=== PATIENT | female | born 1940 | race Caucasian/White ===

== ENCOUNTER 2023-04-09 16:25 | Inpatient (IN) | payer OTHER ==
[2023-04-09 18:11] LABS: Hematocrit 36.2 % (36.0-45.0); Lymphocytes % 14.8 % (15.3-44.8); MCV 84.8 fL (80-100); MPV 8.2 fL (7.6-11.3); RBC Red Blood Cell Count 4.27 M/uL (3.86-4.86)
[2023-04-09 18:18] LABS: Protime INR 1.12
[2023-04-09 18:29] LABS: Albumin 2.9 g/dL (3.4-5.0); Bilirubin Direct 0.1 mg/dL (0-0.2); Bilirubin Indirect, Calculated 0.2 mg/dL (0.2-0.8); Bilirubin Total 0.3 mg/dL (0.2-1.0); Magnesium 1.3 mg/dL (1.6-2.4); Protein, Total 7.2 g/dL (6.4-8.2); Troponin High Sensitivity 6.9 pg/mL (<58.9)
--- NOTE | 2023-04-09 18:33 | RAD REPORT ---
EXAM DESCRIPTION: [place] Single View04/09/2023 5:56 pm CLINICAL HISTORY: weakness COMPARISON: CHEST PA AND LAT 2 VIEW dated 03/24/2011; CHEST PA AND LAT 2 VIEW dated 03/17/2011; CHEST PA AND LAT 2 VIEW dated 08/19/2010; CHEST PA AND LAT 2 VIEW dated 02/14/2008 TECHNIQUE: Portable AP view of the chest. FINDINGS: Perihilar fluffy opacities with bilateral layering effusions and Lazaro B-lines . No pneum othorax. The cardiomediastinal contours are unremarkable. IMPRESSION: Findings suggestive of pulmonary edema with bilateral pleural effusions. Underlying pneu monia would be difficult to exclude.
--- NOTE | 2023-04-09 18:48 | RAD REPORT ---
EXAM DESCRIPTION: CT - Head Brain Wo Cont - 04/09/2023 6:10 pm CLINICAL HISTORY: DIZZINESS COMPARISON: HEAD BRAIN W O CONTRAST dated 06/05/2009; HEAD BRAIN W O CONTRAST dated 01/29/1987 TECHNIQUE: Noncontrast head CT images were obtained without IV contrast. Multiplanar reformats were generated and reviewed. All CT scans are performed using dose optimization technique as appropriate and may include automated exposure control or mA/KV adjustment according to patient size. FINDINGS: No intracranial hemorrhage, mass, or edema. Midline structures are unremarkable. Stable ventricular caliber, with mild diffuse parenchymal volume loss. Stable left subinsular focus o f near CSF density, may represent a small remote infarct or prominent perivascular space. Davis-white matter differentiation is preserved, without evidence of acute infarct. No abnormal extra- axial fluid collections. Mastoid air cells and visualized portions of the paranasal sinuses are clear. No acute bony findings. IMPRESSION: No evidence of an acute intracranial process.
--- NOTE | 2023-04-09 19:12 | ER ---
Nurse's Notes [facility] Name: Ami Hare Age: 82 yrs Sex: Female : 1940 Arrival Date: 04/09/2023 Time: 16:25 Bed 20 Private MD: Guillermo Miller C Diagnosis: Hypercalcemia;Altered mental status, unspecified;Dehydration Presentation: 04/09 16:57 Chief complaint: Patient states: Dizzy, weak, cant take care of her at home. ll1 Coronavirus screen: Vaccine status: Patient reports being unvaccinated. Client denies travel out of the [place] in the last 14 days. cough unrelated to allergies, difficulty breathing, fatigue, shortness of breath, Client presents with at least one sign or symptom that may indicate coronavirus-19. Standard/surgical mask placed on the client. Ebola Screen: Patient denies travel to an Ebola-affected area in the 21 days before illness onset. Initial Sepsis Screen: Does the patient meet any 2 criteria? No. Patient's initial sepsis screen is negative. Does the patient have a suspected source of infection? No. Patient's initial sepsis screen is negative. Risk Assessment: Do you want to hurt yourself or someone else? Patient reports no desire to harm self or others. Onset of symptoms was April 04, 2023. 16:57 Method Of Arrival: Wheelchair ll1 16:57 Acuity: LYNDSEY 3 ll1 Triage Assessment: 17:00 General: Appears uncomfortable, Behavior is calm, cooperative, appropriate for age. ll1 Pain: Complains of pain in back Quality of pain is described as aching. Neuro: Reports weakness. Respiratory: Reports shortness of breath cough that is. Musculoskeletal: Reports weakness in right leg and left leg. - Immunization history:: Client reports having NOT received the Covid vaccine. - Social history:: Smoking status: Patient denies any tobacco usage or history of. - Family history:: not pertinent. - Hospitalizations: : No recent hospitalization is reported. Screenin:00 [facility] ED Fall Risk Assessment (Adult) Score/Fall Risk Level 0 - 2 = Low Risk. Abuse eh3 screen: Denies threats or abuse. Denies injuries from another. Nutritional screening: No deficits noted. Tuberculosis screening: No symptoms or risk factors identified. Assessment: 18:00 General: Appears in no apparent distress. uncomfortable, Behavior is calm, cooperative. eh3 Pain: Denies pain. Neuro: Level of Consciousness is awake, alert, obeys commands, Oriented to person, place, situation, Reports weakness. Cardiovascular: Capillary refill < 3 seconds Patient's skin is warm and dry. Cardiovascular: Edema is 2+ to left ankle, left foot, right ankle and right foot. Respiratory: Airway is patent Respiratory effort is labored, Respiratory pattern is regular, symmetrical. GI: Abdomen is round non-distended. Derm: Skin is pink, warm \T\ dry. Musculoskeletal: Circulation, motion, and sensation intact. 19:00 Reassessment: Patient appears in no apparent distress at this time. Patient and/or eh3 family updated on plan of care and expected duration. Pain level reassessed. 20:00 Reassessment: Patient appears in no apparent distress at this time. Patient and/or eh3 family updated on plan of care and expected duration. Pain level reassessed. 21:00 Reassessment: Patient appears in no apparent distress at this time. Patient and/or eh3 family updated on plan of care and expected duration. Pain level reassessed. Vital Signs: 16:57 BP 126 / 65; Pulse 87; Resp 17; Temp 97.9; Pulse Ox 96% ; Pain 10/10; ll1 18:26 BP 122 / 73 Supine; Pulse 72; aw1 18:28 BP 138 / 65 Sitting; Pulse 80; aw1 19:30 BP 144 / 69; Pulse 83; Resp 17; Pulse Ox 97% on R/A; eh3 20:30 BP 129 / 95; Pulse 81; Resp 20; Pulse Ox 96% on R/A; eh3 21:30 BP 134 / 72; Pulse 86; Resp 20; Pulse Ox 96% on R/A; eh3 16:57 Pain Scale: Adult ll1 ED Course: 16:26 Patient arrived in ED. am2 16:27 Guillermo Miller MD is Private Physician. am2 16:39 Xavier Traore MD is Attending Physician. rn 16:59 Triage completed. ll1 17:00 Arm band placed on. ll1 17:58 Chest Single View XRAY In Process Unspecified. EDMS 18:00 Patient has correct armband on for positive identification. Placed in gown. Bed in low eh3 position. Call light in reach. Side rails up X2. Client placed on continuous cardiac and pulse oximetry monitoring. NIBP monitoring applied. 18:04 Michelle Olivas, RN is Primary Nurse. 3 18:04 Inserted saline lock: 22 gauge in right forearm, using aseptic technique. Blood ds4 collected. 18:12 CT Head Brain wo Cont In Process Unspecified. EDMS 19:10 Guillermo Miller MD is Hospitalizing Provider. rn 21:45 No provider procedures requiring assistance completed. 3 21:45 Patient admitted, IV remains in place. 3 Administered Medications: 19:40 Drug: NS 0.9% IV 500 ml Route: IV; Rate: bolus; Site: right antecubital; 3 20:40 Follow up: IV Status: Completed infusion; IV Intake: 500ml [facility] 19:40 Drug: Magnesium Sulfate IVPB 1 grams Route: IVPB; Infused Over: 1 hrs; Site: right [facility] antecubital; 20:40 Follow up: Response: No adverse reaction; IV Status: Completed infusion; IV Intake: eh3 100ml 20:00 Drug: Furosemide IVP 40 mg Route: IVP; Site: right antecubital; 3 21:00 Follow up: Response: No adverse reaction 3 Medication: 21:30 VIS not applicable for this client. 3 Intake: 20:40 IV: 100ml; Total: 100ml. eh3 20:40 IV: 500ml; Total: 600ml. 3 Outcome: 19:11 Decision to Hospitalize by Provider. rn 21:45 Admitted to Med/surg accompanied by tech, via stretcher, room 216, Report called to [facility] Chris 21:45 Condition: stable 21:45 Instructed on the need for admit. 21:46 Patient left the ED. 3 Signatures: Dispatcher [employer] EDTX Xavier Traore MD MD rn Swanson, Donovan ds4 Kitty Baker am2 Yesi Howard RN RN 1 Michelle Olivas, MERLINE RN 3 Tiffanie Sherman aw1 Corrections: (The following items were deleted from the chart) 21:50 21:48 No provider procedures requiring assistance completed. 3 3
--- NOTE | 2023-04-09 19:12 | EDPHYS ---
Physician Documentation [facility] Name: Ami Hare Age: 82 yrs Sex: Female : 1940 Arrival Date: 04/09/2023 Time: 16:25 Bed 20 Private MD: Guillermo Miller C ED Physician Xavier Traore HPI: 04/09 17:16 This 82 yrs old Female presents to ER via Wheelchair with complaints of Dizziness, rn General Weakness. 17:16 The patient presents with dizziness, generalized weakness. Onset: The symptoms/episode rn began/occurred 2 month(s) ago. Modifying factors: The symptoms are alleviated by nothing, the symptoms are aggravated by standing up, changing position. Severity of symptoms: At their worst the symptoms were moderate in the emergency department the symptoms are unchanged. The patient has experienced similar episodes in the past. The patient has been recently seen by a physician:. Pt and report sent in by Dr Miller for admission, has recent diagnosis of lymphoma, s/p single treatment 1 month ago, all in [facility], now having generalized weakness and confusion over the last 2 months, progressively worsening. Recent falls as well. . - Immunization history:: Client reports having NOT received the Covid vaccine. - Social history:: Smoking status: Patient denies any tobacco usage or history of. - Family history:: not pertinent. - Hospitalizations: : No recent hospitalization is reported. ROS: 17:16 Constitutional: Negative for fever, chills Eyes: Negative for injury, pain, redness, rn and discharge, Neck: Negative for injury, pain, and swelling, Cardiovascular: Negative for chest pain, palpitations, and edema, Respiratory: Negative for shortness of breath, cough, wheezing, and pleuritic chest pain, Abdomen/GI: Negative for abdominal pain, nausea, vomiting, diarrhea, and constipation, Back: Negative for injury and pain, MS/Extremity: Negative for injury and deformity, Skin: Negative for injury, rash, and discoloration, Neuro: Negative for headache, numbness, tingling, and seizure. Exam: 17:16 Constitutional: This is a well developed, well nourished patient who is awake, alow to rn respond, seems a little confused Head/Face: Normocephalic, atraumatic. ENT: dry MM Cardiovascular: Regular rate and rhythm. No pulse deficits. Respiratory: No increased work of breathing, no retractions or nasal flaring. Abdomen/GI: soft, non-tender Skin: Warm, dry, a few ecchymoses to bilateral upper ext MS/ Extremity: Pulses equal, no cyanosis. Neurovascular intact. Full, normal range of motion. Neuro: Awake, GCS 15, oriented to person, place, not time. Cranial nerves II-XII grossly intact. Motor strength 4/5 in all extremities. Sensory grossly intact. Vital Signs: 16:57 BP 126 / 65; Pulse 87; Resp 17; Temp 97.9; Pulse Ox 96% ; Pain 10/10; ll1 18:26 BP 122 / 73 Supine; Pulse 72; aw1 18:28 BP 138 / 65 Sitting; Pulse 80; aw1 19:30 BP 144 / 69; Pulse 83; Resp 17; Pulse Ox 97% on R/A; eh3 20:30 BP 129 / 95; Pulse 81; Resp 20; Pulse Ox 96% on R/A; eh3 21:30 BP 134 / 72; Pulse 86; Resp 20; Pulse Ox 96% on R/A; eh3 16:57 Pain Scale: Adult ll1 MDM: 16:39 Patient medically screened. rn 19:07 Differential diagnosis: cardiac arrhythmia, CVA, generalized weakness, hypovolemia, rn idiopathic dizziness, TIA, hypercalcemia, dehydration, UTI. Data reviewed: vital signs, nurses notes, lab test result(s), radiologic studies, CT scan, and as a result, I will admit patient. Consideration of Admission/Observation Patient was admitted/placed on observation. Escalation of care including admission/observation considered. Management of patient was discussed with the following: Primary Care Provider: Dr. Miller, will admit for further care, hydration, and treatment of hypercalcemia. Counseling: I had a detailed discussion with the patient and/or guardian regarding: the historical points, exam findings, and any diagnostic results supporting the discharge/admit diagnosis, lab results, radiology results, the need for further work-up and treatment in the hospital. Response to treatment: the patient's symptoms have mildly improved after treatment, and as a result, I will admit patient. 04/09 17:05 Order name: Basic Metabolic Panel; Complete Time: 18:33 rn 04/09 17:05 Order name: CBC with Diff; Complete Time: 18:33 rn 04/09 17:05 Order name: Hepatic Function; Complete Time: 18:33 rn 04/09 17:05 Order name: Magnesium; Complete Time: 18:33 rn 04/09 17:05 Order name: Protime (+inr); Complete Time: 18:33 rn 04/09 17:05 Order name: Ptt, Activated; Complete Time: 18:33 rn 04/09 17:05 Order name: Troponin High Sensitivity; Complete Time: 18:33 rn 04/09 17:05 Order name: Urinalysis w/ reflexes rn 04/09 17:05 Order name: CT Head Brain wo Cont; Complete Time: 18:51 rn 04/09 17:05 Order name: Chest Single View XRAY; Complete Time: 18:41 rn 04/09 17:05 Order name: EKG; Complete Time: 17:06 rn 04/09 17:05 Order name: Cardiac monitoring; Complete Time: 18:05 rn 04/09 17:05 Order name: EKG - Nurse/Tech; Complete Time: 17:51 rn 04/09 17:05 Order name: IV Saline Lock; Complete Time: 18:04 rn 04/09 17:05 Order name: Labs collected and sent; Complete Time: 18:04 rn 04/09 17:05 Order name: NPO; Complete Time: 18:05 rn 04/09 17:05 Order name: O2 Per Protocol; Complete Time: 18:04 rn 04/09 17:05 Order name: O2 Sat Monitoring; Complete Time: 18:04 rn 04/09 17:05 Order name: Orthostatics; Complete Time: 18:31 rn Administered Medications: 19:40 Drug: NS 0.9% IV 500 ml Route: IV; Rate: bolus; Site: right antecubital; 3 20:40 Follow up: IV Status: Completed infusion; IV Intake: 500ml eh3 19:40 Drug: Magnesium Sulfate IVPB 1 grams Route: IVPB; Infused Over: 1 hrs; Site: right eh3 antecubital; 20:40 Follow up: Response: No adverse reaction; IV Status: Completed infusion; IV Intake: eh3 100ml 20:00 Drug: Furosemide IVP 40 mg Route: IVP; Site: right antecubital; 3 21:00 Follow up: Response: No adverse reaction eh3 Disposition Summary: 04/09/23 19:11 Hospitalization Ordered Hospitalization Status: Inpatient Admission rn Provider: Guillermo Miller rn Location: Telemetry/MedSur (Inpatient) rn Condition: Stable rn Problem: new rn Symptoms: have improved rn Bed/Room Type: Standard rn Room Assignment: 216(04/09/23 20:54) cg Diagnosis - Hypercalcemia rn - Altered mental status, unspecified rn - Dehydration rn Forms: - Medication Reconciliation Form rn - SBAR form rn Signatures: Dispatcher [employer] EDMS Xavier Traore MD MD rn Attema, Lee, [employer] PU[employer] OPERATOR SUPERVISOR-C [employer] PU[employer] OPERATOR SUPERVISOR-[facility]1 Annalise Sena RN RN cg Yesi Howard RN RN ll1 Michelle Olivas RN RN eh3 Corrections: (The following items were deleted from the chart) 20:54 19:11 rn cg
[2023-04-09] MEDS ORDERED: MAGNESIUM SULFATE 1 gm IVPB 1 GM/100 ML BAG IV ONE (19:46)
[2023-04-09] MEDS ORDERED: FUROSEMIDE 40 MG/4 ML VIAL ONE (19:46)
[2023-04-09] MEDS ORDERED: NA CHLORIDE 0.9% 500 ML ONE (19:46)
[2023-04-09] MEDS ORDERED: GLUCAGON 1 MG/VIAL IM PRN (21:49)
[2023-04-09] MEDS ORDERED: D50W 25 GM/50 ML SYRINGE IV PRN (21:49)
[2023-04-09] MEDS ORDERED: D10W 125 ML IV PRN (21:59)
[2023-04-09] MEDS ORDERED: PAMIDRONATE DISOD 30 MG VIAL IV ONE ×2 (22:00→22:49)
[2023-04-09] MEDS ORDERED: NA CHLORIDE 0.9% 1,000 ML IV SCH (22:00)
[2023-04-09] MEDS ORDERED: ONDANSETRON 4 MG/2 ML VIAL IV PRN (22:08)
[2023-04-09] MEDS ORDERED: ACETAMINOPHEN 500 MG TAB PO PRN (22:08)
[2023-04-09] MEDS: HEPARIN 5000 UNIT/ML 1 ML VIAL SQ SCH (22:08)
[2023-04-09 22:30] VITALS: BMI 32.4
[2023-04-09] MEDS ORDERED: NA CHLORIDE 0.9% 1,000 ML ONE (22:57)
[2023-04-09] MEDS ORDERED: PAMIDRONATE IV ONE (23:00)
[2023-04-09] MEDS ORDERED: NA CHLORIDE 0.9% IV ONE (23:00)
[2023-04-10] MEDS ORDERED: FUROSEMIDE 40 MG/4 ML VIAL IV ONE (02:08)
[2023-04-10] MEDS: ALBUTEROL 2.5 MG/3 ML NEB SOL NEB ONE ×2 (02:11→02:57)
[2023-04-10] MEDS: INSULIN -REGULAR HUMAN 50 UNIT/0.5 ML ML SQ SCH ×4 (07:30→21:00)
[2023-04-10 07:46] LABS: Absolute Lymphocytes (CBC) 0.5 K/uL (0.7-4.9); Hematocrit 34.5 % (36.0-45.0); Lymphocytes % 11.2 % (15.3-44.8); MCV 85.4 fL (80-100); RBC Red Blood Cell Count 4.04 M/uL (3.86-4.86)
[2023-04-10] MEDS: ALBUTEROL 2.5 MG/3 ML NEB SOL NEB SCH ×3 (07:55→20:00)
[2023-04-10 08:06] LABS: Potassium 3.4 mEq/L (3.5-5.1)
[2023-04-10] MEDS: HEPARIN 5000 UNIT/ML 1 ML VIAL SQ SCH (08:31)
[2023-04-10] MEDS ORDERED: METOPROLOL TARTRATE 5 MG/5 ML INJ IV STA (10:22)
[2023-04-10 11:08] LABS: Magnesium 1.4 mg/dL (1.6-2.4); Thyroid Stimulating Hormone 0.782 uIU/mL (0.358-3.740)
[2023-04-10] MEDS: DIGOXIN 0.25 MG/ML AMP IV SCH ×2 (11:08→17:30)
[2023-04-10] MEDS ORDERED: Magnesium Sulfate 2gm IVPB 2 G/50 ML BAG IV ONE (12:00)
[2023-04-10] MEDS ORDERED: POTASSIUM CL SA 10 MEQ TAB PO ONE (12:00)
[2023-04-10 12:46] LABS: Specific Gravity 1.013 (1.005-1.030); Urine Bacteria <20 /HPF (<20); Urine Bilirubin NEGATIVE (Negative); Urine Blood Negative (Negative); Urine Clarity Extremely Turbid (Clear); Urine Color Light-Yellow (Yellow); Urine Glucose 3+ (Negative); Urine Mucus Slight /HPF (None Seen); Urine Protein NEGATIVE (Negative); Urine RBC None Seen /HPF (None Seen); Urine Urobilinogen Normal (Normal)
[2023-04-10 17:01] LABS: Magnesium 1.7 mg/dL (1.6-2.4); Potassium 3.8 mEq/L (3.5-5.1)
[2023-04-10] MEDS: METOPROLOL TAR 25 MG TAB PO SCH (17:30)
[2023-04-10] MEDS: FUROSEMIDE 40 MG/4 ML VIAL IV SCH (17:30)
--- NOTE | 2023-04-10 20:15 | CON ---
Date of Consultation: 04/10/2023 Reason For Consultation: Atrial fibrillation with rapid ventricular response. History Of Present Illness: This is an 82-year-old female with a past medical history of dementia, c ongestive heart failure, COPD, and atrial fibrillation, presented to the emergency room because of al tered mental status and dehydration, found to have high calcium. She was diagnosed with lymphoma and she is under treatment for that. She was in atrial fibrillation with rapid ventricular response and when I evaluated her, she had significant shortness of breath, lower extremity edema, and orthopnea. Past Medical History: As outlined above in the HPI. Medications: Refer to reconciliation sheet for detailed list. Allergies: NO KNOWN DRUG ALLERGIES. Family History: No premature coronary artery disease or cancer. Social History: She does not smoke or drink. Does not use any drugs. Review of Systems: All systems were reviewed and they were negative except as mentioned in the HPI. Physical Examination: Vital Signs: Reviewed. Head and Neck: Pupils are equal, reactive to light. Intact eye movements. No JVD. No cervical lym phadenopathy. Neck is supple. Thyroid is not enlarged. Lungs: Decreased breathing sounds with scattered wheezing. Heart: Irregularly irregular and tachycardic. Abdomen: Soft, nontender. Bowel sounds positive. No organomegaly. No masses or hernia. No rigidi ty or rebound. Extremities: 3+ pedal edema bilaterally. No clubbing, cyanosis. Intact pulses. Skin: No rash. Neurologic: Alert, awake. No acute focal deficits appreciated. Investigations: BUN 43, creatinine 1.3. Troponin is negative. Assessment And Recommendations: 1.Acute on chronic congestive heart failure exacerbation likely diastolic. Start the patient on [place] ix 40 mg IV q.12 hours. Monitor BUN, creatinine, and electrolytes. 2.Atrial fibrillation with rapid ventricular response. To increase metoprolol to 50 mg by mouth q.8 hours and monitor on telemetry. If she continues to run fast, we will plan to do IV and amiodarone load and please discontinue the digoxin. She is on a huge dose of digoxin and this will cause toxici ty. Current medications. SR/MODL Voice ID: [id number] Report ID: [id number]
[2023-04-10] MEDS: APIXABAN 5 MG TABLET PO SCH (20:20)
--- NOTE | 2023-04-11 01:57 | HP ---
Date of Admission: 04/10/2023 Chief Complaint: Altered mental status and feeling weak. History Of Present Illness: This is a very pleasant 82-year-old patient of mine who lives close to [place], [place] some of the time and other time she lives here. The patient was admitted to hospital in [place], [place] in January of this year after she had two falls over two days and was having generalized weakness and confusion and she was taken to emergency room in [place], [place], where she was admitted for about 12 days and during that hospital admission, she was diagnosed as having urinary tract infection, malnutrition, hypercalcemia, dehydration and a CT scan of the abdomen had revealed a mass. Biopsy showed follicular lymphoma and she had one dose of Rituxan while she was in the hospital. After she was released from the hospital, she went to senior living and she stayed there for some time and senior living lost electricity for 2 to 3 days and during that time, they were transferring patients to different facilities, so the patient's decided to bring her home and they were living close to [place], [place] for last 2 to 3 weeks after he brought her out of shelter facility and was having lot of difficulties providing care to her ever since he brought her home. The patient was having increasing generalized weakness, increasing confusion, poor appetite, not eating or drinking enough and finally decided to go ahead and bring her over to my office and after she was evaluated yesterday and after I obtained all this information from patient's , he was advised to go ahead and bring her to our emergency room and I did communicate details with our ER physicians and she was evaluated last night in our emergency room and got admitted to the hospital. The patient had significant altered mental status yesterday to the extent that she was constantly sleeping while she was at the office and did not communicate, did not answer any questions at all, and she was assisted in a wheelchair instead of allowing her to walk. After she came into ER, we noted her calcium level was 12.5, her BUN was 46, and creatinine 1.50. She was given IV fluid. Chest x-ray had shown changes of congestive heart failure. She was given one dose of Lasix 40 mg and was admitted to hospital. IV fluid was continued and I also ordered one dose of 60 mg pamidronate for this hypercalcemia problem. This morning when I saw her in the hospital room, her was with her and the patient has shown significant improvement in her overall mental status. She was awake, alert, recognizing me. Her answering simple questions appropriately. The patient was having some shortness of breath last night and while she was having the shortness of breath, nurse contacted me, she was in middle of getting her IV pamidronate. IV fluid which was ordered for her normal saline at 75 cc/hour was ordered to be discontinue and second dose of Lasix 40 mg IV was given last night. The patient is on nasal cannula oxygen this morning when I saw her with some tachypnea. I did get information regarding her Oncologist, Dr. Desiree Yanes and I did call her at [phone], [facility], [place], [place] and I did communicate with her today and she was able to provide me lot of useful information and she informed me that she had seen the patient only once while she was in the hospital and the patient had this intraabdominal mass and biopsy showed that it was low-grade lymphoma. Her plan was to give her three doses of Rituxan, one dose was given in the emergency room and the patient was supposed to have a followup at her clinic after the discharge from the hospital, but the patient never made any followup appointment and I explained it to Dr. Yanes why the patient was not able to follow up after the discharge from the hospital. As per information, I learned from her that her intraabdominal mass was 11 cm x 7 cm x 5 cm. CAT scan also reported 4 mm right lower lobe nodule. Dr. Yanes was going to have a followup on it on an outpatient basis. Unfortunately, face sheet that the patient's was showing me from shelter facility had labeled her as right lower lung malignant neoplasm and in reality that is not the case as I have learned from Dr. Yanes that it was just a 4 mm pulmonary nodule and it was never labeled or diagnosed in the hospital as lung cancer, so this was wrong information labeled by shelter facility. In fact, the patient's also informed me that he was never told that she had lung cancer. I have requested Dr. Yanes to send me pertinent information that she has regarding this patient, so we can provide care in our local area. Allergies: TO PENICILLIN CAUSING RASH, SULFA CAUSING RASH, CODEINE CAUSING HEART FLASHES. Medications: 1. Aspirin 81 mg daily. 2. Farxiga 10 mg daily with breakfast. 3. Fluvastatin 40 mg daily at bedtime. 4. Gabapentin 300 mg two times a day. 5. Glimepiride 4 mg takes half a tablet two times a day. 6. Hydrochlorothiazide 25 mg daily as needed for leg swelling. 7. Levothyroxine 50 mcg daily. 8. Tradjenta 5 mg daily. 9. Losartan 100 mg daily. 10. Antivert 25 mg four times a day as needed for dizziness. 11. Metoprolol tartrate 25 mg two times a day. 12. Omeprazole 20 mg daily. New medication that was added from either hospital in [place], [place] or [facility] was metformin 850 mg two times a day. Review of Systems: Constitutional: As mentioned above. 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 Cardiovascular: Has bilateral leg swelling. Respiratory: The patient's has reported that in the last few days as of this week, she is having some shortness of breath from time to time. All other systems reviewed and negative. Past Medical History: Significant for: 1. 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 2. Hypothyroidism. 3. Hypertension. 4. Mixed hyperlipidemia. 5. Gastroesophageal reflux disease. 6. Non-alcoholic. 7. Fatty liver disease. 8. Diverticulosis. 9. Osteoarthritis at multiple sites. 10. Osteopenia. 11. Chronic kidney disease, stage IIIB. 12. Recent diagnosis of follicular lymphoma, intraabdominal. 13. She also has history of iron deficiency anemia. 14. Hypothyroidism. 15. Urinary incontinence. Past Surgical History: 1. Cataract surgery. 2. Surgery for right wrist fracture. 3. Arthroscopy. 4. Knee surgery. 5. Subsequently, knee replacement surgery for varicose veins on the leg. Family History: The patient was adopted as a child, so details unknown about her biological parents. Social History: Negative for smoking and use of alcohol very rarely in the past. Physical Examination: Vital Signs: This morning temperature 97.1, pulse 87, respiratory rate 16, blood pressure 133/70, oxygen saturation 97% on 2 L nasal cannula oxygen. Height 5 feet 3 inches and weight 183 pounds. General: The patient appeared weaker than normal, but awake, alert, answering questions much better today than yesterday and not using any accessory muscles of respiration, but her breathing is rapid compared to normal. HEENT: Head atraumatic, normocephalic. Conjunctivae nonerythematous. Sclerae white. Mouth, no thrush or edema noted. Ears/Nose, no mass, lesion, discharge noted. Neck: Supple. No JVD, lymph nodes, bruit, thyromegaly noted. Lungs: Presence of some rales noted in lower lung mckinley. Not using accessory muscles of respiration. No wheezing. Heart: Normal heart sounds, no murmur or gallop. Abdomen: Soft, bowel sounds normal. No guarding, rigidity, tenderness, mass, hepatosplenomegaly, distention, or bruit noted. Extremities: Bilateral grade 1 pedal edema involving lower half of legs. Skin: No rash, ulcer, cellulitis. Lymphatics: No lymph node enlargement in neck, supraclavicular, infraclavicular region. Neuro: No focal neurological deficit. Chest: Unremarkable. External Genitalia: Deferred. Rectal: Deferred. Laboratory Data: Yesterday, white count 6.9, hemoglobin 11.7, platelets 237. Today, white count 4.6, hemoglobin 11.2, platelets 208. Yesterday, sodium 137, potassium 4, chloride 104, bicarb 23, BUN 46, creatinine 1.50, glucose 107, serum calcium was 12.5, magnesium 1.3. Liver function tests unremarkable. TSH today was 0.782 and this morning calcium level came down to 12 after she received 60 mg of IV pamidronate last night. This morning, sodium 138, potassium 3.4, chloride 103, bicarb 27, BUN 43, creatinine 1.30, glucose 133. Urinalysis from yesterday 500 leukocytes, 3+ glucose. Otherwise, urinalysis was unremarkable. Impression: 1. Hypercalcemia. 2. Acute kidney injury. 3. Volume depletion. 4. Hypokalemia. 5. Hypomagnesemia. 6. Anemia, iron deficiency. 7. Follicular lymphoma, intraabdominal. 8. Type 2 diabetes mellitus with chronic kidney disease. 9. Diabetes mellitus with diabetic neuropathy. 10. Hypertension. 11. Hypothyroidism. 12. Mixed hyperlipidemia. 13. Diverticulosis. 14. Paroxysmal atrial fibrillation. 15. Encephalopathy, metabolic. 16. Congestive heart failure. Plan: We will admit the patient to hospital for further evaluation and management of this problem. The patient is appropriate for inpatient and is expected to spend two midnight in hospital. After she was admitted last night, she was given IV fluid, IV Lasix, and IV pamidronate. Her calcium level this morning has come down to 12, and we are expecting that tomorrow her calcium level should look even better than today. Overall, her mental status has improved since the calcium level has started to come down. We will go ahead and get an echocardiogram done today to look at her left ventricular ejection fraction and then decide further therapy for congestive heart failure problem. Replace electrolyte per protocol, which is low magnesium and low potassium should be corrected per protocol. After I saw her today, she had atrial fibrillation with rapid ventricular rate. Heart rate went up to 150 to 160 range and IV digoxin and IV metoprolol was ordered. As of this evening, we will start oral metoprolol. Upon admission, heparin was ordered for DVT prophylaxis 5000 units subcutaneous injection every 12 hours, which was discontinued after she went into atrial fibrillation and Eliquis 5 mg two times a day was ordered in view of atrial fibrillation. Physical therapy to work with the patient and diabetes will be managed with the sliding scale. She does not need any antihypertensive medication at this point. We will not give her any of her cholesterol reducing medication. Levothyroxine will be continued for her hypothyroidism per order. At appropriate time, we will repeat CT scan of chest and abdomen and I had a long discussion with the patient's and the patient regarding her care. They very likely will decide to stay now here in this area instead of going back to [facility] and they will seek medical care here with our local oncologist, so we will definitely go ahead and provide referral on outpatient basis with oncologists. I have requested Dr. Yanes to send me pertinent information and we will review that. I will also discuss the advanced directives with the patient's and the patient and at this point, they have not been able to make any decision, but they will think about it, but until the decision is made, she will remain full code. Cardiology consultation was requested for atrial fibrillation problem. STEFFANIE/MODL Voice ID: [id number] MTDD
[2023-04-11] MEDS: ALBUTEROL 2.5 MG/3 ML NEB SOL NEB SCH ×4 (02:10→20:25)
[2023-04-11] MEDS: METOPROLOL TAR 25 MG TAB PO SCH (06:38)
[2023-04-11] MEDS: INSULIN -REGULAR HUMAN 50 UNIT/0.5 ML ML SQ SCH ×4 (07:30→21:00)
[2023-04-11] MEDS: APIXABAN 5 MG TABLET PO SCH ×2 (08:19→21:00)
[2023-04-11] MEDS: FUROSEMIDE 40 MG/4 ML VIAL IV SCH ×2 (08:19→17:07)
[2023-04-11] MEDS ORDERED: METOPROLOL TAR 25 MG TAB PO ONE (09:00)
[2023-04-11] MEDS ORDERED: GABAPENTIN 300 MG CAP PO SCH (09:00)
[2023-04-11] MEDS ORDERED: Linagliptin [Tradjenta] 5 MG Tablet PO SCH (09:00)
[2023-04-11] MEDS ORDERED: PANTOPRAZOLE 40MG TABLET PO SCH (09:00)
[2023-04-11] MEDS ORDERED: Dapagliflozin Propanediol [Farxiga] 10 MG Tablet PO SCH (09:00)
[2023-04-11] MEDS ORDERED: LOSARTAN POTASSIUM 50 MG TABLET PO SCH (09:00)
[2023-04-11] MEDS ORDERED: LEVOTHYROXINE SOD 0.05 MG TABLET PO SCH (09:00)
[2023-04-11 10:15] LABS: Magnesium 1.6 mg/dL (1.6-2.4); Potassium 4.2 mEq/L (3.5-5.1)
--- NOTE | 2023-04-11 11:34 | PN ---
Date of Progress Note: 04/11/2023 Subjective: The patient was seen this morning for followup. She was lying in bed, not in any distre ss. Her friend and son and [id number]-ism were present with her when I saw her today. When I saw h er, she was awake, alert just like yesterday and definitely much better compared to 2 days ago. Toda y, she came into the hospital so that altered mental status has improved, but she is not back to her normal self yet. I have received and reviewed information from her oncologist, Dr. Yanes who has pro vided us available information that she has and I have reviewed all the information this morning incl uding x-ray, CAT scan, pathology report, reports from hospitalist service as well as Oncology consult ation reports. Physical Examination: Vital Signs: This morning; temperature 97.1, pulse 75, respiratory rate 20, blood pressure 174/69, o xygen saturation 95% on 2 L nasal cannula oxygen. General: The patient is lying in bed in a semi-upright position, not in any distress, on nasal cannu la oxygen 2 L/minute. HEENT: Unremarkable. Lungs: Bilateral good equal air entry, not in any respiratory distress. Presence of some scattered rales in the lower lung field. Heart: Sounds normal. Abdomen: Soft. Bowel sounds normal. No guarding, rigidity, tenderness, distention. Extremities: Bilateral trace leg edema, better than before. Laboratory Data: This morning; chemistry result pending. Impression: 1.Hypercalcemia. 2.Low-grade follicular lymphoma, intra-abdominal. 3.Fracture of transverse process of L1 and L2. 4.A 4 mm right lower lobe pulmonary nodule. 5.Dementia. 6.Hypertension. 7.Paroxysmal atrial fibrillation. 8.Volume depletion. 9.Acute kidney injury. Plan: The patient received IV pamidronate 1 dose and we will expect to have an ongoing improvement i n her calcium level after the administration of this medications night before last. We will follow u p on today's result. She also has congestive heart failure problem for which she is getting Lasix, w hich we will continue that at this point. Echocardiogram was done yesterday, result pending, but I s uspect she probably has diastolic heart failure. Cardiology consultation was appreciated. She yeste rday had atrial fibrillation with rapid ventricular rate. IV digoxin, IV metoprolol, and oral metopr olol were started, and she has converted to sinus rhythm now. We will continue metoprolol, but inste ad of 25 mg twice a day, I will go up on the dose to 50 mg 2 times a day as of this morning. Continu e her other antihypertensive medication, losartan per order. For diabetes, we will go ahead and cont inue her sliding scale insulin and start her on Farxiga that she normally takes at home, which is 10 mg daily. We will also continue Eliquis 5 mg twice a day for her atrial fibrillation problem. No ne ed for further intervention for fracture of transverse process of L1 and L2. Physical Therapy to wor k with her for her generalized weakness and debility. No need for further intervention for a right l ower lobe pulmonary nodule. I had a long discussion with the patient's son, [id number] and her friend was present in the room as well when I was communicating and discussed all the details, inform ation that I have a lot by reviewing the records from oncologist's office that we have and all those details were discussed with family members today. I was in the patient's room for almost 40 minutes and throughout that time, the patient was awake, but constantly picking on either her clothes or bed sheets. When she was admitted to hospital in [place] even there was a question raised about possibilit y of underlying dementia and hypercalcemia definitely can cause altered mental status, but once we ge t her calcium level down and the ongoing altered mental status, we cannot lately talk hypercalcemia p roblem and we will have to definitely start thinking about underlying senile dementia problem. The w ay her overall general condition is her performance status is poor and obviously she will need to con tinue to follow up with our local oncologist on outpatient basis to see whether she would benefit and she would be able to undergo any further treatment for her lymphoma or not depending on her overall condition. As family was informed that sometime treatment could be worse than the disease itself, bu t it all depends on the patient's overall health status. We also had a long discussion regarding the importance of family to have a discussion regarding advanced care and decision should be made by fabien larson if they want her to be full code or do not resuscitate and I have encouraged family to have this discussion as soon as possible and once they make the decision, they need to communicate with me. If the decision is to have DNR in place in that case we will assist family with out of hospital DNR pap erwork as well. The way her condition is I am not sure if will be able to handle it and take care of her at home or not and I am hoping that Thursday or Thursday of this coming week she will be re arti for discharge, so I have encouraged family to start having discussion regarding discharge plannin g and if they want to take her to local nursing facility, then we can have our Social Service help us with discharge planning as well. I will see her tomorrow for followup. STEFFANIE/MODL Voice ID: [id number] Report ID: [id number]
[2023-04-11] MEDS ORDERED: MAGNESIUM SULFATE 1 gm IVPB 1 GM/100 ML BAG IV ONE (12:00)
[2023-04-11] MEDS ORDERED: LORazepam 2 MG/ML VIAL IV PRN (14:37)
--- NOTE | 2023-04-11 16:22 | EKG ---
Test Date: 2023-04-09 Test Time: 17:49:19 Guide Rail Cleaner: RADHA MEASUREMENT RESULTS: Intervals: Rate: 84 MO: 148 QRSD: 92 QT: 392 QTc: 463 [place]: P: 33 MO: 148 QRS: 7 T: -25 INTERPRETIVE STATEMENTS: Normal sinus rhythm Cannot rule out Anterior infarct, age undetermined Abnormal ECG Compared to ECG 07/01/2006 12:54:00 Myocardial infarct finding now present ST (T wave) deviation no longer present Possible ischemia no longer present Electronically Signed On 04-11-23 16:18:30 CDT by Marcos Medina
[2023-04-11] MEDS: METOPROLOL TAR 50 MG TAB PO SCH (17:07)
--- NOTE | 2023-04-11 19:49 | PN ---
Date of Progress Note: 04/11/2023 Subjective: Seen by bedside. She is not responding very well. Review of Systems: She is having difficulty breathing and wheezing. Unable to get history from her, patient is lethargi c. Review of systems unable to perform as the patient is not able to communicate very well. Physical Examination: Vital Signs: Reviewed. Head and Neck: Pupils are equal, reactive to light. Intact eye movements. No cervical lymphadenopa thy. Positive JVD. Lungs: Wheezing bilaterally with prolonged expiration and slight increase in respiratory efforts. Heart: Irregularly irregular. No extra sounds. Abdomen: Soft. Bowel sounds positive. No organomegaly. No masses or hernia. No rigidity or rebou nd. Extremities: No clubbing, cyanosis. Intact pulses. Skin: No rash. Neurologic: Very lethargic and does not communicate very well. Investigations: BUN 43, creatinine 1.35, and hemoglobin is 11.2. Assessment And Recommendations: 1.Atrial fibrillation, rate is controlled. Continue metoprolol and Eliquis. 2.Moderate pericardial effusion on the echo, but there are no signs of tamponade. Normal ejection f raction. The right ventricular systolic pressure is elevated at 60 mmHg. This echo was done yesterd ay. She will benefit from diuresis, definitely which was started yesterday. Likely, this pericardia l effusion is due to the malignancy that she has, which is lymphoma and given that it is not causing tamponade, will be monitored clinically. 3.Congestive heart failure. Getting Lasix appropriately. Monitor electrolytes and BUN and creatini ne. SR/MODL Voice ID: [id number] Report ID: [id number]
[2023-04-11] MEDS: QUETIAPINE 25 MG TAB PO SCH (21:00)
[2023-04-11] MEDS: GABAPENTIN 300 MG CAPSULE PO SCH (21:00)
[2023-04-12] MEDS: ALBUTEROL 2.5 MG/3 ML NEB SOL NEB SCH ×4 (02:40→20:00)
[2023-04-12 06:11] LABS: Absolute Lymphocytes (CBC) 0.3 K/uL (0.7-4.9); Hematocrit 36.6 % (36.0-45.0); Lymphocytes % 4.6 % (15.3-44.8); MCV 86.9 fL (80-100); MPV 7.6 fL (7.6-11.3); RBC Red Blood Cell Count 4.21 M/uL (3.86-4.86)
[2023-04-12] MEDS: METOPROLOL TAR 50 MG TAB PO SCH ×2 (06:16→17:44)
[2023-04-12 06:17] LABS: Potassium 3.7 mEq/L (3.5-5.1)
[2023-04-12] MEDS ORDERED: LEVOTHYROXINE 50 MCG PO SCH (06:30)
[2023-04-12] MEDS: INSULIN -REGULAR HUMAN 50 UNIT/0.5 ML ML SQ SCH ×4 (07:30→21:00)
[2023-04-12] MEDS ORDERED: Dapagliflozin Propanediol [Farxiga] 10 MG Tablet PO SCH (08:00)
[2023-04-12] MEDS ORDERED: Linagliptin [Tradjenta] 5 MG Tablet PO SCH (08:00)
[2023-04-12] MEDS ORDERED: POTASSIUM 25 MEQ EFFERV TAB PO ONE (09:00)
[2023-04-12] MEDS: FUROSEMIDE 40 MG/4 ML VIAL IV SCH ×3 (09:00→17:44)
[2023-04-12] MEDS ORDERED: LOSARTAN POTASSIUM 100 MG TABLET PO SCH (09:00)
[2023-04-12] MEDS ORDERED: OMEPRAZOLE 20 MG PO SCH (09:00)
[2023-04-12] MEDS: APIXABAN 5 MG TABLET PO SCH ×2 (09:34→20:59)
[2023-04-12] MEDS: GABAPENTIN 300 MG CAPSULE PO SCH ×2 (09:35→20:58)
[2023-04-12] MEDS: GLUCERNA SHAKE 237 ML CAN PO SCH ×2 (13:38→20:59)
[2023-04-12] MEDS: QUETIAPINE 25 MG TAB PO SCH (20:58)
[2023-04-12] MEDS ORDERED: METOPROLOL TARTRATE 5 MG/5 ML INJ IV STA (23:42)
[2023-04-13] MEDS: ALBUTEROL 2.5 MG/3 ML NEB SOL NEB SCH (01:15)
[2023-04-13 04:41] VITALS: O2SAT 94
[2023-04-13 04:52] LABS: Potassium 3.5 mEq/L (3.5-5.1)
[2023-04-13 05:03] VITALS: BP 148/80; TEMP 96.9
[2023-04-13] MEDS: METOPROLOL TAR 50 MG TAB PO SCH (06:00)
--- NOTE | 2023-04-13 06:53 | PN ---
Date of Progress Note: 04/12/2023 Subjective: Patient was seen this morning for followup. She was lying in bed, not in any distress, sleeping, not communicating today like she did yesterday. Her , son, and [id number]-ejo were present at bedside with her. Objective: Vital Signs: Reviewed. HEENT: Unremarkable. Lungs: Shallow, but somewhat rapid breathing. Not using any accessory muscles of respiration. Heart: Sounds normal. Abdomen: Soft. Bowel sounds normal. No guarding, rigidity, tenderness, distention. Extremities: No leg edema. Laboratory Data: White count 6.9, hemoglobin 11.8, platelets 244. Sodium 140, potassium 3.7, chlori de 103, bicarb 29, BUN 43, creatinine 1.22, glucose 203, calcium 12.5. Impression: 1.Hypercalcemia. 2.Lymphoma. 3.Right lower lobe pulmonary nodule, 4 mm. 4.Type 2 diabetes mellitus. 5.Hypertension. 6.Paroxysmal atrial fibrillation. 7.Fracture of transverse process of L1, L2. 8.Senile dementia. Plan: I did talk to patient's and son and [id number], who were present in room today. The patient's tells me today that for last year or longer, he has noted that the patient is h aving some memory problems and they were trying to manage it without much difficulties. The patient had gone into atrial fibrillation yesterday, responded well to metoprolol and we will continue curren t metoprolol. She was also started on Eliquis 5 mg 2 times a day for atrial fibrillation. Dr. Neri figueroa has noted that the echocardiogram has shown moderate amount of pericardial effusion without any alo dence of cardiac tamponade, so at this point, no further intervention has been suggested by him excep t monitoring and I did discuss all those details with the patient's family as well. Also, communicat ed with family members regarding advance directives and the patient's clearly has stated that the patient would not have wanted any heroic measures like CPR, defibrillation, or ventilator suppor t and he would like for us to have [id number] order in place. We also discussed about discha rge planning and hospice care and on basis of how the patient is reacting today, there is a good poss ibility about rapid decline and that is what my concern is and I recommended hospice care, which fami ly is agreeable, and they would like for her to go to long-term facility as will not be able to handle this at home, so I have requested Social Service to assist with this. Meanwhile, we will continue other current medical management including current Lasix. STEFFANIE/MODL Voice ID: [id number] Report ID: [id number]
--- NOTE | 2023-04-13 07:13 | ECHO ---
HEIGHT: 5 ft 3 in WEIGHT: 183 lb 4.8 oz DATE OF STUDY: 04/10/[address]: Thang Miller MD 2-DIMENSIONAL: YES M.MODE: YES DOPPLER: YES COLOR FLOW: YES TDS: PORTABLE: YES DEFINITY: BUBBLE STUDY: DIAGNOSIS: CONGESTIVE HEART FAILURE CARDIAC HISTORY: CATHERIZATION: SURGERY: PROSTHETIC VALVE: PACEMAKER: MEASUREMENTS (cm) DIASTOLIC (NORMALS) SYSTOLIC (NORMALS) IVSd 0.9 (0.6-1.2) LA Diam 3.1 (1.9-4.0) LVEF 78% LVIDd 3.7 (3.5-5.7) LVIDs 2.0 (2.0-3.5) %FS 46% LVPWd 0.9 (0.6-1.2) Ao Diam 2.5 (2.0-3.7) 2 DIMENSIONAL ASSESSMENT: RIGHT ATRIUM: NORMAL LEFT ATRIUM: NORMAL RIGHT VENTRICLE: NORMAL LEFT VENTRICLE: NORMAL TRICUSPID VALVE: MILD TRICUSPID REGURGITATION MITRAL VALVE: NORMAL PULMONIC VALVE: NORMAL AORTIC VALVE: NORMAL PERICARDIAL EFFUSION: MODERATE AORTIC ROOT: NORMAL LEFT VENTRICULAR WALL MOTION: NORMAL DOPPLER/COLOR FLOW: SEE BELOW COMMENTS: 1. NORMAL LEFT VENTRICULAR EJECTION FRACTION GREATER THAN 60% WITH NORMAL WALL MOTION 2. MILD TRICUSPID REGURGITATION 3. MODERATE CIRCUMFERENTIAL PERICARDIAL EFFUSION, NO TAMPONADE BY ECHOCARDIOGRAM 4. PULMONARY HYPERTENSION WITH RIGHT VENTRICULAR SYSTOLIC PRESSURE OF 60-65 mmHg TECHNOLOGIST: SHANE MONTILLA
[2023-04-13] MEDS ORDERED: ENOXAPARIN 40 MG/0.4 ML SQ SCH (09:00)
[2023-04-13] MEDS ORDERED: ASPIRIN EC 81 MG TAB PO SCH (09:00)
--- NOTE | 2023-04-13 17:19 | EKG ---
Test Date: 2023-04-10 Test Time: 10:40:33 Advertising Account Representative: DAYDAY MEASUREMENT RESULTS: Intervals: Rate: 142 [place]: QRSD: 82 QT: 288 QTc: 443 [place]: P: [place]: QRS: 60 T: 257 INTERPRETIVE STATEMENTS: Atrial fibrillation with rapid ventricular response Low voltage QRS Nonspecific ST and T wave abnormality, probably digitalis effect Abnormal ECG Compared to ECG 04/09/2023 17:49:19 Low QRS voltage now present ST (T wave) deviation now present Sinus rhythm no longer present Myocardial infarct finding no longer present Electronically Signed On 04-13-23 17:14:26 CDT by Marcos Medina
--- NOTE | 2023-04-13 20:57 | DS ---
Date of Discharge: 04/13/2023 Physical Examination: The patient this morning. She was pronounced at 5:50 a.m. Laboratory Data: This morning; sodium 141, potassium 3.5, chloride 101, bicarb 33, BUN 44, creatinin e 1.28, glucose 228. Yesterday; BUN 43, creatinine 1.22, glucose 203. Upon admission; sodium 137, p otassium 4, chloride 104, bicarb 23, BUN 46, creatinine 1.50, glucose 107, calcium 12.5, and lowest c alcium was 12 day after admission and today calcium was 12.5 as well. TSH was 0.782 on 04/10/2023. Liver function was unremarkable upon admission. Magnesium was low at 1.3 upon admission. CBC upon a dmission; white count 6.9, hemoglobin 11.7, platelets 237. Yesterday; white count 6.9, hemoglobin 11 .8, platelets 244. Hospital Course: This is an 82-year-old very pleasant female patient, admitted to the hospital with altered mental status and feeling weak. Please see dictated H and P for more information. After the patient was evaluated in the emergency room, she was admitted to the hospital with hypercalcemia, ac jed kidney injury, volume depletion. Her potassium was low, magnesium was low upon admission, and or génesis was written to correct it per electrolyte replacement protocol. Please see dictated H and P for more details. I did communicate details with her oncologist, Dr. Yanes who took care of her in January of this year in [place], [place]. The patient received 60 mg IV dose of pamidronate upon admission and we ordered IV fluid to be given for hypercalcemia, but subsequently it was discontinued during the ni ght of admission as the patient was having shortness of breath and IV Lasix was started for congestiv e heart failure problem. Cardiology consultation was requested from Dr. Medina and echocardiogram wa s done, which showed normal ejection fraction. The patient had diastolic heart failure and Dr. Neri figueroa also reported that the patient had moderate pericardial effusion without any evidence of tamponade, so no need for any surgical intervention at this time except monitoring. The patient continued to r eceive IV Lasix. She did go into atrial fibrillation with rapid ventricular rate and was treated wit h IV metoprolol and oral metoprolol was started along with oral anticoagulation therapy Eliquis. The patient's overall condition, mental status did improve day after admission, but then she started goi ng downhill again and yesterday morning she was very sleepy. When after I saw her, the patient's hus band reported that she did wake up and she ate very well yesterday. The patient's overall prognosis was considered very poor and I did communicate with the patient's family members on a daily basis and yesterday when I communicated with the patient's in presence of her son and [id number], informed me about advanced directive of do not resuscitate and order was placed in the chart . We also talked about hospice care and going to longterm facility with hospice care and this is what family has decided, so Social Service was consulted to help make arrangements. Early this m orning while the patient was on telemetry, she went into asystole and she was pronounced . Famil y was made aware of this. Her advance directive status was do not resuscitate, so no heroic measures were performed. After the patient , came to hospital and son and [id number] were there when I went into the room and details were discussed with family members. Questions were answered. Final Diagnoses: 1.Hypercalcemia. 2.Acute kidney injury. 3.Volume depletion. 4.Hypokalemia. 5.Hypomagnesemia. 6.Follicular lymphoma, intra-abdominal. 7.Right lower lobe pulmonary nodule. 8.Anemia, iron deficiency. 9.Paroxysmal atrial fibrillation. 10.Senile dementia. 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 12.Diabetes mellitus with diabetic neuropathy. 13.Hypertension. 14.Hypothyroidism. 15.Mixed hyperlipidemia. 16.Diverticulosis. 17.Metabolic encephalopathy. 18.Chronic diastolic heart failure with acute exacerbation. STEFFANIE/MODL Voice ID: [id number] Report ID: [id number]
== END 2023-04-13 05:50 | disposition expired | DRG 640 ==
LOC: ER 16:25 → ERHOLD 19:16 → 2ND 21:15
PROVIDERS: ADMIT Internal Medicine; ATTEND Internal Medicine
DX: E83.52 Hypercalcemia (principal); G93.41 Metabolic encephalopathy; I50.33 Acute on chronic diastolic (congestive) heart failure; I13.0 Hypertensive heart and chronic kidney disease with heart failure and stage 1 through stage 4 chronic kidney disease, or unspecified chronic kidney disease; C82.93 Follicular lymphoma, unspecified, intra-abdominal lymph nodes; N17.9 Acute kidney failure, unspecified; N18.32 Chronic kidney disease, stage 3b; E11.22 Type 2 diabetes mellitus with diabetic chronic kidney disease; E86.0 Dehydration; J44.9 Chronic obstructive pulmonary disease, unspecified; K76.0 Fatty (change of) liver, not elsewhere classified; E78.2 Mixed hyperlipidemia; K21.9 Gastro-esophageal reflux disease without esophagitis; E03.9 Hypothyroidism, unspecified; M19.09 Primary osteoarthritis, other specified site; E87.6 Hypokalemia; D50.9 Iron deficiency anemia, unspecified; E83.42 Hypomagnesemia; E86.9 Volume depletion, unspecified; I48.0 Paroxysmal atrial fibrillation; E11.40 Type 2 diabetes mellitus with diabetic neuropathy, unspecified; F03.90 Unspecified dementia, unspecified severity, without behavioral disturbance, psychotic disturbance, mood disturbance, and anxiety; S32.019D Unspecified fracture of first lumbar vertebra, subsequent encounter for fracture with routine healing; S32.029D Unspecified fracture of second lumbar vertebra, subsequent encounter for fracture with routine healing; R91.8 Other nonspecific abnormal finding of lung field; Z88.0 Allergy status to penicillin; Z88.1 Allergy status to other antibiotic agents; Z88.5 Allergy status to narcotic agent; Z79.84 Long term (current) use of oral hypoglycemic drugs; Z79.82 Long term (current) use of aspirin; Z79.890 Hormone replacement therapy; Z28.310 Unvaccinated for COVID-19; Z79.899 Other long term (current) drug therapy; Z96.659 Presence of unspecified artificial knee joint
CPT/HCPCS: 36415; 70450; 71045; 80048; 80076; 81001; 82947; 83735; 84132; 84443; 84484; 85025; 85610; 85730; 93005; 93306; 94640; 96365; 96375; 97116; 97163; 97530; 99285; J1160; J1644; J1940; J2430; J3475; J7030; J7040; J7613